=== PATIENT | female | born 1995 | race Caucasian/White ===

== ENCOUNTER 2019-04-17 13:22 | Emergency (ER) | payer OTHER ==
[~2019-04-17] VITALS: Ht 167.6 cm; Wt 88.6 kg
[2019-04-17] MEDS ORDERED: NS 1,000 ML IV ONE (14:00)
[2019-04-17] MEDS ORDERED: LIDOCAINE VISCOUS 2% SOLN 15ML UDC PO ONE (14:00)
[2019-04-17] MEDS ORDERED: ACETAMINOPHEN TAB 650MG DOSE (2X325MG) PO ONE (14:15)
[2019-04-17 15:02] LABS: MONO SCRN NEGATIVE (NEGATIVE)
[2019-04-17] MEDS ORDERED: CHLO0.5L PO (16:10)
[2019-04-17] MEDS ORDERED: APAP325T4 PO (16:16)
[2019-04-17] MEDS ORDERED: IBUP-1114 PO (16:16)
[2019-04-17] MEDS ORDERED: LIDVISCBTL PO (16:16)
[2019-04-17 16:24] VITALS: BP 123/72
== END 2019-04-17 16:54 | disposition home or self-care (01) ==
LOC: M ED 13:22
DX: J06.9 Acute upper respiratory infection, unspecified (principal); Z20.9 Contact with and (suspected) exposure to unspecified communicable disease
CPT/HCPCS: 80047; 84702; 86308; 87430; 87486; 87581; 87633; 87798; 87804; 87880; 93005; 99284; G0463

== ENCOUNTER → 2019-04-17 | Outpatient (CLI) | payer OTHER ==
[~2019-04-17] MED LIST: APAP325T4 PO; CHLO0.5L PO; IBUP-1114 PO; LIDVISCBTL PO
== END ==
LOC: M LRY 12:23
PROVIDERS: ATTEND Nurse Practitioner Family
DX: R53.81 Other malaise (principal)

== ENCOUNTER → 2019-04-17 | Outpatient (REF) | payer OTHER | LOC: M SFHCLERA 11:58 | PROVIDERS: ATTEND Nurse Practitioner Family | DX: R53.81 Other malaise (principal) ==